=== PATIENT | male | born 1985 | race Hispanic/Latino ===

== ENCOUNTER 2021-02-15 11:14 | Emergency (ER) | payer SELFPAY ==
--- NOTE | 2021-02-15 11:27 | ED.GENADULT ---
HPI - General Adult General Chief complaint: Neck Pain/Injury Stated complaint: neck pain Time Seen by Provider: 02/15/21 11:40 Source: patient and RN notes reviewed Mode of arrival: ambulatory Limitations: language barrier (Maori-speaking, interpretation by nephew, manager analytical offered and refused.) History of Present Illness HPI narrative: 35-year-old male presents with left-sided neck pain, left-sided headache for approximately 2 to 3 days. He denies any neck injury, trauma. Denies any head injury. He denies nausea, vomiting. He denies weakness in any extremity or vision changes. He reports he had a history of high blood pressure, but has not been taking his blood pressure medications for approximately 5 months. He denies chest pain, syncope, near syncope. Reports he is tried Tylenol, ibuprofen, [id number] pain creams with no relief. Reports pain is slightly worsened with rotation of the neck. MD complaint: Neck pain Related Data Allergies Allergy/AdvReac Type Severity Reaction Status Date / Time No Known Allergies Allergy Verified 02/15/21 11:30 Review of Systems Review of Systems: Narrative: CONSTITUTIONAL: Denies malaise, chills, sweats, or fever. EYES: Denies visual changes ENT: Denies rhinorrhea, congestion, sinus pain, otalgia or sore throat. CARDIOVASCULAR: Denies chest pain, palpitations, or edema. RESPIRATORY: Denies cough or dyspnea. GASTROINTESTINAL: Denies abdominal pain, nausea, vomiting MUSCULOSKELETAL: Reports left-sided neck pain, pain at the base of the head on the left side NEUROLOGIC: Denies numbness, weakness. Reports left-sided headache. PSYCHIATRIC: Denies anxiety or depression. All systems reviewed & are unremarkable except as noted in HPI and below PMFSH Comments At time of signature, agree with nursing past medical, surgical, social and family history. There is no relevant family history pertinent to the presenting complaint Exam Narrative: Exam Narrative: GENERAL: Well-appearing, well-nourished, and in no acute distress. HEAD: Normocephalic, atraumatic. EYES: PERRLA, conjunctivae clear, and EOMI. No nystagmus. ENT: Nares clear. Mucous membranes moist. TM pearly marquez with sharp light reflex bilaterally; no tragal tenderness. NECK: Supple. No lymphadenopathy. No jugular venous distension, thyromegaly, or carotid bruits. Carotids were easily palpable bilaterally. CHEST: No respiratory distress. Clear to auscultation. No bony deformities, no asymmetry. Speaks in full sentences. HEART: Regular rate and rhythm. No murmur heard. Normal peripheral pulses. SKIN: Warm, dry, no rash. NEURO: Alert and oriented x3. No focal deficits. PSYCH: Normal mood and affect Course Course Emergency Course: Patient is aware of, understands and agrees to reasons to be seen in the emergency department. Patient agrees to proceed directly to the emergency department. Portions of this record may have been created with voice recognition software Vital Signs Vital signs: Reviewed. Transfer Transfered to: [facility] Transportation: Other (Private vehicle) Transfer rationale: High blood pressure, headache, neck pain Accepting physician: Dr. Jordan Medical Decision Making MDM Narrative Medical decision making narrative: Patient's history and exam warrant for evaluation emergency department. Patient is stable for transfer via private vehicle. Critical Care Time Critical Care Time Critical Care Time: No Discharge Plan Discharge Clinical Impression: High blood pressure Qualifiers: Hypertension type: unspecified Qualified Code(s): I10 - Essential (primary) hypertension Headache Qualifiers: Headache type: unspecified Headache chronicity pattern: episodic headache Intractability: intractable Qualified Code(s): R51.9 - Headache, unspecified Patient Disposition: Home, Self-Care Condition: Stable Follow-up/Referrals: UNKNOWN,DOCTOR [Primary Care Provider] - Time of Disposition: 11:58
[2021-02-15 11:36] VITALS: BP 222/135; PULSE 85; RESP 16; TEMP 36.6; O2SAT 98
[2021-02-15 11:41] VITALS: BP 238/124
== END 2021-02-15 11:54 | disposition home or self-care (01) ==
PROVIDERS: Emergency Provider Nurse Practitioner
DX: I10 Essential (primary) hypertension (principal); R51.9 Headache, unspecified
CPT/HCPCS: 99202; G0463

== ENCOUNTER 2021-02-15 12:08 | Inpatient (IN) | payer SELFPAY ==
[2021-02-15] VITALS (12 sets, daily range): BP systolic 167–254; BP diastolic 114–153; PULSE 70–89; RESP 12–18; TEMP 35.7–36.7; O2SAT 98–100
--- NOTE | ~2021-02-15 | US_ITS ---
EXAMINATION: US renal BI EXAM DATE: 02/16/2021 15:05 INDICATION: Acute kidney insufficiency. Hypertension. TECHNIQUE: Multiple grayscale and Doppler images of the kidneys were obtained (by a technologist who performed the scan) and subsequently reviewed. There is no prior study for comparison. FINDINGS: Right kidney: There is normal contour and increased echogenicity. It measures 8.6 x 3.8 x 4.5 centim eters. There are no focal renal lesions identified. There is no hydronephrosis. Left kidney: There is normal contour and increased echogenicity. It measures 9.2 x 5.2 x 5.5 centime ters. There are no focal renal lesions identified. There is no hydronephrosis. Bladder unremarkable. IMPRESSION: Hyperechoic, mildly atrophic kidneys bilaterally. Medical renal disease. No hydronephrosi s. Reviewed, dictated and finalized at location A. IMPRESSION: Hyperechoic, mildly atrophic kidneys bilaterally. Medical renal dis ease. No hydronephrosis.
--- NOTE | ~2021-02-15 | XR_ITS ---
EXAMINATION: XR chest 1V portable EXAM DATE: 02/15/2021 13:01 INDICATION: Hypertension. TECHNIQUE: Portable AP frontal chest x-ray was obtained. There is no prior study for comparison. FINDINGS: Mild hyperinflation. The lungs are clear. There are no pleural effusions. The cardiomedia stinal silhouette is within normal limits. There is no pneumothorax suspected. The bones and soft t issues are unremarkable. IMPRESSION: No acute cardiopulmonary findings. Mild hyperinflation. Reviewed, dictated and finalized at location A.
--- NOTE | ~2021-02-15 | CT_ITS ---
EXAMINATION: CT BRAIN W/O DATE: 02/15/2021 12:55 INDICATION: Hypertension. Headache. TECHNIQUE: Computed tomography (CT) of the head was performed without intravenous contrast. The dose- length product was 605.33 mGy-cm. The mA was adjusted according to patient size. Iterative reconstruction technique was employed. COMPARISON: No prior studies for comparison. FINDINGS: Normal brain parenchymal volume for age. Normal marquez-white differentiation. No acute intrac ranial hemorrhage, infarction, mass or mass effect. No ventriculomegaly or midline shift. Midline sagittal images demonstrate a normal corpus callosum, c raniovertebral junction and sella turcica. Basilar cisterns are patent. Paranasal sinuses and mastoids are pneumatized. No depressed skull fractures. IMPRESSION: 1. No acute intracranial abnormality. Reviewed, dictated and finalized at location B.
--- NOTE | ~2021-02-15 | US_ITS ---
EXAMINATION: US retroperitoneal duplex ltd EXAM DATE: 02/16/2021 15:05 INDICATION: Uncontrolled hypertension. TECHNIQUE: Multiple grayscale and Doppler images of the kidneys and renal arteries were obtained. T here is no prior study for comparison. FINDINGS: The aorta peak systolic velocity is 107 cm/s. Renal arteries interrogated in several segments from origin to hilum. RIGHT RENAL ARTERY Proximal segment: 73 cm/s. Mid segment: 86 cm/s. Distal segment: 80 cm/s. LEFT RENAL ARTERY Proximal segment: 55 cm/s. Mid segment: 51 cm/s. Distal segment: 50 cm/s. IMPRESSION: 1. Renal artery Doppler velocities within normal limits. Reviewed, dictated and finalized at location A.
--- NOTE | 2021-02-15 12:40 | ECG_ITS ---
Measurements Intervals [place] Rate: 75 P: 65 [place]: 173 QRS: 48 QRSD: 102 T: 112 QT: 342 QTc: 384 Interpretive Statements SINUS RHYTHM INCOMPLETE RIGHT BUNDLE BRANCH BLOCK BORDERLINE ST-T WAVE ABNORMALITY- ANTEROLAT/HIGH LAT LEADS BASELINE ARTIFACT- V5 BORDERLINE ECG Electronically Signed On 02-15-2021 14:00:23 CDT by Mustapha Rosado D.O.
--- NOTE | 2021-02-15 12:42 | ED.GENADULT ---
HPI - General Adult General Chief complaint: Recheck/Abnormal Lab/Rx Stated complaint: Headache Time Seen by Provider: 02/15/21 12:16 Source: patient and RN notes reviewed Mode of arrival: ambulatory Limitations: language barrier History of Present Illness HPI narrative: Patient is 35 years old male, does not speak Singaporean, came with his friend who speaks Singaporean complaining of left side headache and left side of the neck pain started 4 days ago. Patient been taking ibuprofen with minimal improvement. Patient denies having similar symptoms. Patient does not take any medications, healthy otherwise, does not smoke or drink or uses marijuana. Patient denies any recent trauma or injury. Patient denies any fever, chills, nausea, vomiting, chest pain, back pain, abdominal pain, blurred vision. Patient does not know his family history. Related Data Home Medications Medication Instructions Recorded Confirmed No Home Medications 02/15/21 Allergies Allergy/AdvReac Type Severity Reaction Status Date / Time No Known Allergies Allergy Verified 02/15/21 11:30 Review of Systems Review of Systems: Narrative: CONSTITUTIONAL: Denies fever, chills, or sweats. EYES: Denies visual changes, redness, or discharge. ENT: Denies rhinorrhea, congestion, sore throat, or otalgia. CARDIOVASCULAR: Denies chest pain, palpitations, or edema. RESPIRATORY: Denies cough or dyspnea. GASTROINTESTINAL: Denies abdominal pain, nausea, vomiting, or diarrhea. GENITOURINARY: Denies dysuria or hematuria. SKIN: Denies rash or itching. MUSCULOSKELETAL: Denies back pain, joint pain, or myalgia. NEUROLOGIC: Denies headache, numbness, or weakness. PSYCHIATRIC: Denies anxiety or depression. PMFSH Social History Social History Gender identity (if verbalized by the patient): Male Exam Narrative: Exam Narrative: General appearance: Well-developed, well-nourished Skin: Normal color Head: Normocephalic, nontraumatic Eyes: Clear conjunctiva ENT: Oropharynx normal, ears normal, nose normal Neck: Supple, nontender Chest and respiratory: Airway patent, no respiratory distress, no accessory muscle use Heart: Regular rate/rhythm Abdomen: Soft, nontender, no organomegaly, quiet bowel sounds Vascular: Normal peripheral pulses, normal capillary refill. Musculoskeletal: Normal range of motion, nontender back Neurologic: Alert and oriented ?3, PUBLIC POLICY MEDIATOR is normal as tested, no gross motor deficit Course Course Emergency Course: Stable Consultations Consultation #1: DR HENSON Date: 02/15/21 Time: 14:58 Vital Signs Vital signs: Vital Signs Temperature 36.7 C 02/15/21 12:22 Pulse Rate 89 02/15/21 12:22 Respiratory Rate 18 02/15/21 12:22 Blood Pressure 254/153 H 02/15/21 12:22 Pulse Oximetry 100 02/15/21 12:22 Temperature 36.7 C 02/15/21 12:22 Pulse Rate 70 02/15/21 14:27 Respiratory Rate 14 02/15/21 14:27 Blood Pressure 202/140 H 02/15/21 14:27 Pulse Oximetry 100 02/15/21 14:27 Medical Decision Making MDM Narrative Medical decision making narrative: New onset of hypertension. Labs, CT head, chest x-ray, EKG, UA ordered. Further plan to follow Differential Diagnosis Differential Diagnosis: New onset hypertension, intracranial hemorrhage Vital Signs Vital Signs: Vital Signs Temperature 36.7 C 02/15/21 12:22 Pulse Rate 89 02/15/21 12:22 Respiratory Rate 18 02/15/21 12:22 Blood Pressure 254/153 H 02/15/21 12:22 Pulse Oximetry 100 02/15/21 12:22 Temperature 36.7 C 02/15/21 12:22 Pulse Rate 70 02/15/21 14:27 Respiratory Rate 14 02/15/21 14:27 Blood Pressure
--- NOTE | 2021-02-15 12:51 | PC.NURSE ---
Pt to CT via wheelchair at this time.
[2021-02-15] MEDS: ONDANSETRON INJ 4 MG/2 ML VIAL IV PUSH (13:28)
[2021-02-15] MEDS: MORPHINE SULFATE (*CRX) 4 MG/ML INJ IV PUSH (13:28)
[2021-02-15] MEDS: LABETALOL HCL INJ 100 MG/20 ML VIAL 20 MG IV PUSH ×2 (13:28→14:01)
[2021-02-15 13:41] LABS: Basophils Percent Auto 0.6 % (0.2-1.2); Eosinophils Absolute Auto 0.1 K/mm3 (0-0.3); Hematocrit 46.1 % (42.0-52.0); Hemoglobin 15.8 g/dL (14.0-18.0); Immature Granulocyte Absolute 0.01 K/mm3 (0.00-0.031); Immature Granulocyte Percent A 0.2 % (0-0.5); Lymphocytes Absolute Auto 1.16 K/mm3 (0.9-3.2); Lymphocytes Percent Auto 17.7 % (18.3-44.2); Mean Corpuscular HGB Conc 34.3 g/dl (32-36); Mean Corpuscular Volume 93.5 fl (80-100); Mean Platelet Volume 10.6 fl (7.4-10.4); Monocytes Absolute Auto 0.3 K/mm3 (0.1-0.6); Neutrophils Absolute Auto 4.9 K/mm3 (1.3-6.7); Neutrophils Percent Auto 74.5 % (45.5-73.1); Platelet Count Result 278 k/mm3 (150-375); Red Blood Count 4.93 M/mm3 (4.6-6.20); Red Cell Distribution Width 11.9 % (11.5-14.5); White Blood Count 6.6 K/mm3 (4.5-10.0)
[2021-02-15 13:57] LABS: Add Urine Microscopic? YES; Appearance Urine Clear (Clear); Bacteria Urine Trace /hpf; Bilirubin Urine Negative (Negative); Blood Urine 2+ (Negative); Color Urine Yellow (Yellow); Glucose Urine UA Negative (Negative); Ketones Urine Negative (Negative); Leukocyte Esterase Ur Negative LEU/UL (Negative); Mucus Urine Rare /lpf; Nitrate Urine Negative (Negative); Protein Urine 3+ mg/dL (Negative); RBC Urine 21-50 /hpf (0-2); Specific Grav Ur 1.012 (1.001-1.035); Urobilinogen Urine Negative mg/dL (<2.0); WBC Urine 0-3 /hpf
[2021-02-15] MEDS: diphenhydrAMINE HCl INJ 50 MG/ML VIAL 25 MG IV PUSH (13:58)
[2021-02-15 14:03] LABS: Alanine Aminotransferase 29 U/L (4-50); Albumin Level 3.9 g/dL (3.5-5.1); Alkaline Phosphatase 64 U/L (38-126); Anion Gap 5 mmol/L (8-16); Aspartate Amino Transferase 38 U/L (17-59); Bilirubin,Total 0.3 mg/dL (0.2-1.3); Blood Urea Nitrogen 17 mg/dL (9-20); Calcium 8.5 mg/dL (8.4-10.2); Carbon Dioxide 31 mmol/L (22-30); Chloride 106 mmol/L (98-107); Estimated CRCL calculation 61 ml/min; Estimated Glomerular Filt Rate 53; Glucose 128 mg/dL (75-110); Potassium 3.8 mmol/L (3.4-5.0); Sodium 142 mmol/L (137-145)
[2021-02-15] MEDS: LOSARTAN POTASSIUM 50 MG TABLET PO (15:16)
--- NOTE | 2021-02-15 17:00 | PM.IMHP ---
H&P: HPI History of Present Illness Date/Time: 02/15/21 17:00 Chief Complaint: Headache, high blood pressure. Narrative: This is a 35-year-old male with untreated hypertension who presented to the emergency department earlier today via private vehicle from a local urgent care for evaluation of headache and high blood pressure. He is Urdu-speaking and an program technician was used to obtain the following history. Sometime last spring he injured his shoulder at which time he was discovered to have hypertension. He was started on nifedipine and initially he was diligent about checking his blood pressures at home and he and his family members have changed their eating habits and are especially mindful of their sodium intake. About 5 months ago he ran out of his nifedipine and did not follow-up with a primary care provider for a refill due to financial concerns. He has also fallen out of habit of checking his blood pressure. Over the last 4 days he has had a constant left-sided headache which seems to be worse with activity and heat. Despite taking Tylenol and ibuprofen it has continued and he presented to a local urgent care for evaluation of such. His blood pressures were extremely elevated, well above 200/100 and he was referred to the emergency department. Aside from the headache he has no complaints and specifically denies visual changes, dizziness, vertigo, focal weakness, paresthesias, chest pain, tachycardia, shortness of breath, and sweats. He denies significant caffeine and alcohol use. No drug use. Review of Systems Review of Systems: Narrative: Twelve systems were reviewed with pertinent positives and negatives as per HPI. No fever, chills, or sweats. He denies recent cold and flu symptoms. No cough. No known exposure to those positive for COVID-19. He denies nausea, vomiting, and diarrhea. Patient admits that he worries a lot and has been more anxious and stressed lately, which he thinks is affecting his blood pressure. Except as documented, all other systems were reviewed and are negative. [facility] Past Medical History Medical History (Updated 02/15/21 @ 19:59 by Mariya Navarro PA-C) Hypertension Surgical History Surgical History (Updated 02/15/21 @ 19:55 by Mariya Navarro PA-C) No history of previous surgery Family History Family History (Updated 02/15/21 @ 19:56 by Mariya Navarro PA-C) Other Diabetes mellitus Social History Social History (Updated 02/15/21 @ 19:57 by Mariya Navarro PA-C) Social History: The patient lives with his in 4 children in [place]. He is originally from [place]. 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 Lifelong nonsmoker. No alcohol or illicit substance use. He designates his , Raciel Banuelos, as his surrogate decision maker and wishes to be a full code. Meds Home Medications and Allergies Home Medications Medication Instructions Recorded Confirmed Type No Home Medications 02/15/21 History Allergies Allergy/AdvReac Type Severity Reaction Status Date / Time No Known Allergies Allergy Verified 02/15/21 11:30 Vital Signs Vital Signs - 24 hr 02/15/21 12:22 02/15/21 13:45 02/15/21 14:27 Temperature 98.0 F Pulse Rate 89 76 70 Respiratory Rate 18 18 14 Blood Pressure 254/153 H 218/148 H 202/140 H Pulse Oximetry 100 100 100 02/15/21 15:07 Temperature Pulse Rate 72 Respiratory Rate 13 Blood Pressure 217/145 H Pulse Oximetry 100 Exam Narrative: Exam Narrative: General: Well-developed male in the semi-Sauceda position in bed. Weight: 84 kilograms. BMI: 30.8. HEENT: Normocephalic, atraumatic. PERRL, EOMI. Sclerae anicteric. Oral mucosa moist. Oropharynx clear. Neck: Supple. No carotid bruits. Respiratory: Lungs are clear to auscultation bilaterally. Cardiovascular: Regular rate and rhythm with S1-S2. Gastrointestinal: Abdomen is soft, nontender, and nondistended with posit
--- NOTE | 2021-02-15 18:07 | ADMGEN ---
This patient, Danie Greer, was admitted to IMU Room 213-01 at 1757. Patient/family oriented to hospital policies and general routines including ID bracelet, bed and alarms, visiting hours, pain management, procedures, bathroom and other care routines, personal items, smoking policy, room service/diet, and visiting hours. Information on how to activate the Rapid Response Team has been discussed. Patient/Family are encouraged to report perceived risks to care and to ask questions if they do not understand what they are told or what they should do.
[2021-02-15] MEDS: amLODIPine BESYLATE 5 MG TABLET 10 MG PO (22:14)
--- NOTE | 2021-02-15 23:18 | ECG_ITS ---
Measurements Intervals [place] Rate: 69 P: 62 ID: 178 QRS: 40 QRSD: 105 T: 128 QT: 365 QTc: 393 Interpretive Statements SINUS RHYTHM INCOMPLETE RIGHT BUNDLE BRANCH BLOCK ST-T WAVE ABNORMALITY IN ANTEROLAT/HIGH LAT LEADS- CONSIDER ISCHEMIA ABNORMAL ECG Electronically Signed On 02-16-2021 13:02:48 CDT by Mustapha Rosado D.O.
[2021-02-16] VITALS (14 sets, daily range): BP systolic 158–180; BP diastolic 103–129; PULSE 66–95; RESP 12–18; TEMP 36.1–37.1; O2SAT 100
--- NOTE | 2021-02-16 | ECHO_ITS ---
Patient Info Name: Danie Greer Age: 35 years : 1985 Gender: Male Ht: 65 in Wt: 185 lbs BSA: 1.99 m2 HR: 75 bpm BP: 168 / 118 mmHg Technical Quality: Good Exam Date: 02/16/2021 9:08 AM Exam Location: [facility] Patient Status: Inpatient Admit Date: 02/15/2021 Staff Ordering Physician: Mariya Navarro PA-C Underwater Photographer: Filiberto Mir RDCS, RT Attending Provider: Roberto Sam MD Referring Physician: Melanie CONN; Exam Type: CA echo doppler color flow Study Info Complete two-dimensional, color flow and Doppler transthoracic echocardiogram is performed. Strain analysis performed. Summary 1. Complete two-dimensional, color flow and Doppler transthoracic echocardiogram is performed. 2. Left ventricular chamber dimension is normal. 3. Left ventricular systolic function is normal, estimated at 65-70%. 4. There is mildly increased left ventricular wall thickness. 5. The left ventricular diastolic function is grade I diastolic dysfunction. 6. E/e' 14 is mildly elevated. 7. Global longitudinal strain is abnormal at -15.4%. Left Ventricle E/e' 14 is mildly elevated. Global longitudinal strain is abnormal at -15.4%. Left ventricular chamber dimension is normal. Left ventricular systolic function is normal, estimated at 65-70%. There is mildly increased left ventricular wall thickness. The left ventricular diastolic function is grade I diastolic dysfunction. Right Ventricle Right ventricular chamber dimension is normal. Right ventricular systolic function is normal. Left Atria Left atrial chamber dimension is normal. Right Atria Right atrial chamber dimension is normal. Aortic Valve The aortic valve is trileaflet. There is no aortic valve stenosis. There is no aortic valve regurgitation. Pulmonic Valve There is no pulmonic regurgitation. Mitral Valve There is no mitral valve stenosis. There is no mitral valve regurgitation. Tricuspid Valve There is no tricuspid valve regurgitation. Pericardium/Pleural There is no pericardial effusion. Inferior Vena Cava Normal inferior vena cava with >50% collapse upon inspiration consistent with normal right atrial pressure, 5 mmHg. Aorta The aortic root size at the sinus of Valsalva is normal. Left Ventricular Outflow Tract Name Value Normal LVOT 2D LVOT Diameter 2.0 cm LVOT Doppler LVOT Peak Gradient 5 mmHg LVOT Mean Gradient 3 mmHg LVOT VTI 21 cm LVOT VTI/AV VTI Ratio 0.8 LVOT Stroke Volume 64 ml LVOT CO 5.2 l/min LVOT CI 2.6 l/min/m2 Mitral Valve Name Value Normal MV Doppler MV Decel [place] 356 cm/s2 MV PHT
[2021-02-16 00:04] LABS: Troponin I < 0.012 ng/mL (0.000-0.034)
[2021-02-16 03:00] LABS: Troponin I < 0.012 ng/mL (0.000-0.034)
[2021-02-16 06:22] LABS: Hematocrit 45.4 % (42.0-52.0); Hemoglobin 15.6 g/dL (14.0-18.0); Mean Corpuscular HGB Conc 34.4 g/dl (32-36); Mean Corpuscular Hemoglobin 32.5 pg (26-34); Mean Corpuscular Volume 94.6 fl (80-100); Mean Platelet Volume 10.5 fl (7.4-10.4); Platelet Count Result 263 k/mm3 (150-375); White Blood Count 6.5 K/mm3 (4.5-10.0)
[2021-02-16 06:31] LABS: Anion Gap 3 mmol/L (8-16); Blood Urea Nitrogen 16 mg/dL (9-20); Calcium 8.4 mg/dL (8.4-10.2); Carbon Dioxide 28 mmol/L (22-30); Chloride 109 mmol/L (98-107); Cholesterol 181 mg/dL (0-200); Estimated CRCL calculation 54 ml/min; Estimated Glomerular Filt Rate 46; Glucose 103 mg/dL (75-110); HDL Direct 53 mg/dL; Magnesium 2.1 mg/dL (1.6-2.3); Potassium 3.8 mmol/L (3.4-5.0); Sodium 140 mmol/L (137-145); Triglycerides 112 mg/dL (<150)
[2021-02-16 06:42] LABS: LDL Cholesterol Direct 94 mg/dL; Troponin I < 0.012 ng/mL (0.000-0.034)
[2021-02-16] MEDS: lisinopriL 10 MG TABLET PO (08:31)
--- NOTE | 2021-02-16 14:38 | PM.CNNEP ---
Assessment and Plan Assessment and plan (1) Hypertensive urgency: Code(s): I16.0 - Hypertensive urgency Status: Acute Assessment and Plan: as noted by BP readings on admission plan to SLOWLY adjust medications as do not want to control to fast his BP for fear of possible renal hypoperfusion aim to keep in the 150 - 160 systolic range today given financial issues, will try to use generic medications (lisinopril and amlodipine seem reasonable for now) follow trend of hemodynamics (2) Renal failure: Code(s): N19 - Unspecified kidney failure Status: Acute Assessment and Plan: presumably normal function at baseline follow-up on renal ultrasound and renal duplex (to r/o renal artery stenosis) however, the presence of blood and urine on urinalysis is concerning - will check serologies for completeness he may have had some damage to kidneys already..... Long and extensive discussion (> 20 minutes) with family member by phone (who was able to translate for me my discussion with the patient) regarding the issues about his hypertension as well as possible kidney dysfunction. Will continue to follow History of Present Illness Reason for Consult Consult date: 02/16/21 Reason for consult: accelerated hypertension and Other (elevated creatinine) Chief Complaint Chief complaint: hypertension,judit,headache History of Present Illness Narrative: The majority of the information I have obtained is from review of the electronic medical record as well as discussion with the patient's family member by phone who was able to translate for me when I asked questions as the patient only speaks Greenlandic. The patient is a 35-year-old male who presented to [facility] Emergency room from a local urgent care center for further evaluation of persistent headache in association with high blood pressure. Sometime last spring the patient injured his shoulder at which time it was discovered that he had hypertension. He apparently was started on nifedipine along with dietary and lifestyle modifications which apparently kept his blood pressure reasonably controlled. About 4-5 months ago, he ran out of his medications and was unable to follow up with his primary care physician due to financial issues/concerns. Furthermore, he got out of the habit of watching his diet and did not check his blood pressures at home as he had been previously. About 3-4 days ago, he started having persistent left-sided headaches that would not go away with conservative therapy. He attempted to use Tylenol and ibuprofen without any significant improvement. Eventually, because the headaches or so persistent and debilitating, he presented to a local urgent care center for evaluation. They noted his blood pressure be quite elevated in the 200 systolic range and he was subsequently referred to the emergency room for further evaluation. Workup and evaluation in the emergency room did demonstrate his blood pressure be quite elevated in the 200-220 systolic range in association with the a for mentioned headaches. He received a couple doses of IV labetalol which did bring his blood pressure down into the 180 systolic range. Routine blood test demonstrated and a normal CBC but his chemistry showed elevated BUN and creatinine in association with protein and blood in his urine. It was felt that his significantly elevated blood pressure may have adversely affected his kidney function and for these reasons as well as further optimization of his blood pressure control, he was admitted the hospital for further therapy. Renal consultation was requested due to his abnormal renal function and accelerated hypertension. Aside from the a for mentioned headache, he gave no other symptoms with regard to visual changes, dizziness, vertigo, weakness, chest pain, shortness of breath, night sweats, or syncope. He denies any other significant alcohol, caffeine mark
[2021-02-16] MEDS: ACETAMINOPHEN 500 MG TABLET 1000 MG PO (15:13)
--- NOTE | 2021-02-16 16:08 | PM.IMPN ---
Progress Note: A&P Assessment and Plan (1) Hypertensive urgency: Code(s): I16.0 - Hypertensive urgency Status: Acute Assessment and Plan: patient has been started on lisinopril continue to monitor caution while normalizing the blood (2) EZEQUIEL (acute kidney injury): Code(s): N17.9 - Acute kidney failure, unspecified Status: Acute Assessment and Plan: likely secondary to hypertensive nephropathy continue to monitor renal ultrasound reviewed renal artery ultrasound to reviewed (3) Proteinuria: Code(s): R80.9 - Proteinuria, unspecified Status: Acute Assessment and Plan: likely secondary to cardiovascular disease namely hypertension continue to monitor started lisinopril Subjective Date/time seen: 02/16/21 16:08 I feel fine Review of Systems Review of Systems: Narrative: patient denies any issues at this time Constitutional: Comments: no fevers no rigors no chills Eyes: Comments: no vision changes Cardiovascular: Comments: no chest pain no PND no orthopnea no dizziness Respiratory: Comments: no cough no sputum production Gastrointestinal: Comments: no nausea no vomiting no diarrhea no constipation no abdominal pain Musculoskeletal: Comments: no joint pain or muscle pain Integumentary/Breasts: Comments: no rashes Neurologic: Comments: no sensorimotor deficit, no vertigo Endocrine: Comments: no polydipsia polyphagia or polyuria Hematologic/Lymphatic: Comments: no lymphadenopathy Exam Narrative: Exam Narrative: patient is sitting in bed Const: General: comfortable, no acute distress, well developed, alert, awake and other ( well-appearing) Nutritional Appearance: average body habitus Orientation/consciousness: patient oriented x3 HENMT: Head: normal to inspection, normocephalic and atraumatic Ears: hearing grossly normal bilaterally Face and sinus: normal facial exam Eyes: General: appearance normal, both eyes and all related structures Pupils: Equal, round and reactive pupils present EOM: EOMs intact bilaterally Neck: Neck: full ROM, no lymphadenopathy and no JVD Thyroid: thyroid normal Lymphatic: no lymphadenopathy noted Resp: Effort & Inspection: normal respiratory effort and able to speak in complete sentences Auscultation: clear to auscultation bilaterally Cardio: Jugular venous distension: no JVD Rate: regular rate Rhythm: regular rhythm Heart sounds: S1 normal heart sound present and S2 normal heart sound present GI: GI Palp: Yes Soft to palpation and Yes No hepatosplenomegaly present : General: Yes deferred Skin: Rashes: no rashes Wounds: no wounds Neuro: General: patient oriented x3 and CN's II-XI intact bilaterally Cranial nerves: Yes CN's II-XII intact bilaterally and Yes Equal, round and reactive pupils present Cognition (Neuro): normal cognition Speech: normal speech Gait exam (Neuro): Normal gait present Motor exam (neuro): 5/5 motor strength present throughout Extrem: General: normal to inspection, full ROM, no joint enlargement and no pedal edema Objective Data Vital Signs Vital Signs: Vital Signs - 24 hr 02/15/21 17:15 02/15/21 17:48 02/15/21 18:00 Temperature 98 F Pulse Rate 76 71 72 Respiratory Rate 12 14 14 Blood Pressure 187/131 H 167/122 H 206/130 H Pulse Oximetry 99 98 100 02/15/21 18:12 02/15/21 20:00 02/15/21 22:00 Temperature 97.9 F Pulse Rate 88 72 79 Respiratory Rate 12 Blood Pressure 188/114 H Pulse Oximetry 100 02/15/21 23:38 02/16/21 00:00 02/16/21 02:00 Temperature 96.2 F L Pulse Rate 78 71 91 Respiratory Rate 16 Blood Pressure 173/115 H Pulse Oximetry 100 02/16/21 04:00 02/16/21 06:00 02/16/21 08:00 Temperature 96.9 F L 98.8 F Pulse Rate 71 76 74 Respiratory Rate 16 12 Blood Pressure 168/118 H 159/103 H Pulse Oximetry 100 100 02/16/21 10:00 02/16/21 12:00 02/16/21 14:00 Temperature 98.7 F Pulse Rate 75 72
[2021-02-16] MEDS: amLODIPine BESYLATE 5 MG TABLET 10 MG PO (20:15)
[2021-02-17] VITALS (17 sets, daily range): BP systolic 148–179; BP diastolic 96–120; PULSE 64–88; RESP 16–18; TEMP 36–36.6; O2SAT 99–100; BMI 30.7
[2021-02-17] MEDS: lisinopriL 10 MG TABLET PO ×2 (08:31→17:34)
[2021-02-17] MEDS: ACETAMINOPHEN 325 MG TABLET 650 MG PO ×2 (08:33→20:25)
[2021-02-17] MEDS: lisinopriL 20 MG TABLET 40 MG PO (10:19)
--- NOTE | 2021-02-17 10:47 | PM.PNNEP ---
Progress Note: A&P Assessment and Plan (1) Hypertensive urgency: Code(s): I16.0 - Hypertensive urgency Status: Acute Assessment and Plan: as noted by BP readings on admission trying to avoid overcontrol of BP to reduce risk of renal hypoperfusion aim to keep in the 150 - 170 systolic range for now renal duplex negative for renal artery stenosis can titrate lisiniopril dosage but follow-up on pending labs this AM (creatinine already mildly elevated) PRN hydralazine for now as well follow trend of hemodynamics (2) Renal failure: Code(s): N19 - Unspecified kidney failure Status: Acute Assessment and Plan: presumably normal function at baseline(?) HOWEVER, renal ultrasound is indicative of some changes of renal insufficiency follow-up on pending serologies and quantitate proteinuria suspect he may have an element of CKD at this time.... I suppose if his BP remains stable in the 150 - 160 systolic range by tomorrow and his renal function remains stable, he can probably be discharged but he will need close outpatient follow-up for his BP control and pending testing regarding his evident CKD. Will continue to follow. Subjective Date/time seen: 02/17/21 10:17 No acute complaints voiced at the time of my visit; anxious to go home; no headaches to report overnight or earlier this AM. Exam Narrative: Exam Narrative: General: WD/WN male in NAD Heart: normal S1 and S2; no rub Lungs: clear to auscultation Abdomen: soft, nontender, nondistended, positive bowel sounds Extremities: no cyanosis or clubbing; no edema Skin: warm and dry Objective Data Vital Signs Vital Signs: Vital Signs Temp Pulse Resp BP Pulse Ox 02/17/21 10:00 88 02/17/21 09:53 173/116 H 02/17/21 08:00 36.6 C 74 18 158/120 H 100 02/17/21 05:25 69 02/17/21 04:00 36.4 C L 74 16 148/99 H 100 02/17/21 02:00 70 02/17/21 00:00 86 18 100 02/16/21 23:45 36.1 C L 71 18 169/113 H 100 02/16/21 22:00 68 02/16/21 20:00 36.3 C L 66 16 180/129 H 100 02/16/21 18:00 84 02/16/21 16:00 36.4 C 77 12 159/122 H 100 02/16/21 14:03 100 02/16/21 14:00 82 02/16/21 12:00 37.1 C 72 12 158/128 H 100 Intake/Output Intake/Output: Intake & Output 02/14/21 02/15/21 02/16/21 02/17/21 23:59 23:59 23:59 23:59 Intake Total 1380 640 Output Total 650 Balance 730 640 Meds/Results Medications: Active Medications Generic Name Dose Route Start Last Admin Trade Name Freq PRN Reason Stop Dose Admin Acetaminophen 650 mg 02/16/21 22:39 02/17/21 08:33 Acetaminophen 325 Mg Tablet PO 650 mg Q6H PRN Administration Mild Pain (1-3) or Fever Amlodipine Besylate 10 mg 02/15/21 20:10 02/16/21 20:15 Amlodipine Besylate 5 Mg Tablet PO 10 mg Q24H ZAKIA Administration Hydralazine HCl 5 mg 02/15/21 20:08 Hydralazine Hcl 20 Mg/Ml Vial IV PUSH Q6H PRN SBP > 210 Lisinopril 10 mg 02/16/21 09:00 02/17/21 08:31 Lisinopril 10 Mg Tablet PO 10 mg DAILY ZAKIA Administration Radiology Results: ITS Impressions Head CT 02/15/21 12:56 IMPRESSION: 1. No acute intracranial abnormality. Chest X-Ray 02/15/21 13:02 IMPRESSION: No acute cardiopulmonary findings. Mild hyperinflation. Arterial/Peripheral Duplex 02/16/21 15:07 IMPRESSION: 1. Renal artery Doppler velocities within normal limits. Renal Ultrasound 02/16/21 15:15 IMPRESSION: Hyperechoic, mildly atrophic kidneys bilaterally. Medical renal disease. No hydronephrosis.
--- NOTE | 2021-02-17 12:25 | PM.IMPN ---
Progress Note: A&P Assessment and Plan (1) Hypertensive urgency: Code(s): I16.0 - Hypertensive urgency Status: Acute Assessment and Plan: patient was started on lisinopril and amlodipine is still high cautious normalization of blood pressure (2) High blood pressure: Qualifiers: Hypertension type: unspecified Qualified Code(s): I10 - Essential (primary) hypertension Code(s): I10 - Essential (primary) hypertension Status: Acute Assessment and Plan: patient has not been taking his home meds for several months also dietary noncompliance (3) Renal failure: Code(s): N19 - Unspecified kidney failure Status: Acute Assessment and Plan: renal ultrasound reviewed renal artery duplex reviewed likely secondary to hypertensive nephropathy (4) Proteinuria: Code(s): R80.9 - Proteinuria, unspecified Status: Acute Assessment and Plan: likely secondary to longstanding uncontrolled high blood pressure and hypertensive nephropathy (5) Headache: Qualifiers: Headache chronicity pattern: unspecified pattern Headache type: unspecified Intractability: not intractable Qualified Code(s): R51.9 - Headache, unspecified Code(s): R51.9 - Headache, unspecified Status: Acute Assessment and Plan: supportive care Tylenol p.r.n. Subjective Date/time seen: 02/17/21 12:25 I feel fine. Review of Systems Review of Systems: Narrative: patient states that he feels fine I would like to go home Constitutional: Comments: no fevers no rigors or chills Eyes: Comments: no vision changes Cardiovascular: Comments: no chest pain no PND no orthopnea no leg swelling Respiratory: Comments: no shortness of breath no cough no sputum production Gastrointestinal: Comments: no nausea no vomiting no diarrhea no constipation no abdominal pain Musculoskeletal: Comments: no joint pain or muscle pain Integumentary/Breasts: Comments: no rashes Neurologic: Comments: no sensorimotor deficit Exam Narrative: Exam Narrative: patient is laying in bed Const: General: comfortable, no acute distress, well developed, alert and awake Nutritional Appearance: average body habitus Orientation/consciousness: patient oriented x3 HENMT: Head: normal to inspection, normocephalic and atraumatic Ears: hearing grossly normal bilaterally Face and sinus: normal facial exam Eyes: General: appearance normal, both eyes and all related structures Pupils: Equal, round and reactive pupils present EOM: EOMs intact bilaterally Neck: Neck: full ROM, no lymphadenopathy and no JVD Thyroid: thyroid normal Lymphatic: no lymphadenopathy noted Resp: Effort & Inspection: normal respiratory effort and able to speak in complete sentences Auscultation: clear to auscultation bilaterally Cardio: Jugular venous distension: no JVD Rate: regular rate Rhythm: regular rhythm Heart sounds: S1 normal heart sound present and S2 normal heart sound present GI: GI Palp: Yes Soft to palpation and Yes No hepatosplenomegaly present : General: Yes deferred Skin: Rashes: no rashes Wounds: no wounds Neuro: General: patient oriented x3 and CN's II-XI intact bilaterally Cranial nerves: Yes CN's II-XII intact bilaterally and Yes Equal, round and reactive pupils present Cognition (Neuro): normal cognition Speech: normal speech Gait exam (Neuro): Normal gait present Motor exam (neuro): 5/5 motor strength present throughout Extrem: General: normal to inspection, full ROM, no joint enlargement and no pedal edema Objective Data Vital Signs Vital Signs: Vital Signs - 24 hr 02/16/21 14:00 02/16/21 14:03 02/16/21 16:00 Temperature 97.6 F Pulse Rate 82 77 Respiratory Rate 12 Blood Pressure 159/122 H Pulse Oximetry 100 100 02/16/21 18:00 02/16/21 20:00 02/16/21 22:00 Temperature 97.3 F L Pulse Rate 84 66 68 Respiratory Rate 16 Blo
[2021-02-17 12:29] LABS: Albumin Level 3.7 g/dL (3.5-5.1); Anion Gap 4 mmol/L (8-16); Blood Urea Nitrogen 16 mg/dL (9-20); Calcium 8.5 mg/dL (8.4-10.2); Carbon Dioxide 28 mmol/L (22-30); Chloride 106 mmol/L (98-107); Estimated CRCL calculation 57 ml/min; Estimated Glomerular Filt Rate 49; Glucose 105 mg/dL (75-110); Phosphorus 2.5 mg/dL (2.5-4.5); Potassium 4.3 mmol/L (3.4-5.0); Sodium 138 mmol/L (137-145)
[2021-02-17] MEDS: amLODIPine BESYLATE 5 MG TABLET 10 MG PO (14:15)
[2021-02-17 17:00] LABS: Total Protein Urine Random 79 mg/dL; Ur Ttl Prot Creatinine Ratio 4.39 mg/mg (0-0.20)
[2021-02-17 17:01] LABS: Sodium Urine Random 11 meq/L
[2021-02-17 17:19] LABS: Eosinophil Urine None Seen % (None Seen)
[2021-02-18] VITALS (8 sets, daily range): BP systolic 146–161; BP diastolic 98–109; PULSE 60–78; RESP 16–100; TEMP 35.9–36.3; O2SAT 20–100
[2021-02-18 05:07] LABS: Albumin Level 3.6 g/dL (3.5-5.1); Anion Gap 3 mmol/L (8-16); Blood Urea Nitrogen 20 mg/dL (9-20); Calcium 8.8 mg/dL (8.4-10.2); Carbon Dioxide 28 mmol/L (22-30); Chloride 107 mmol/L (98-107); Estimated CRCL calculation 54 ml/min; Estimated Glomerular Filt Rate 46; Glucose 96 mg/dL (75-110); Phosphorus 3.4 mg/dL (2.5-4.5); Potassium 4.1 mmol/L (3.4-5.0); Sodium 138 mmol/L (137-145)
[2021-02-18 05:11] LABS: Complement C3 104 mg/dL (88-165)
[2021-02-18] MEDS: lisinopriL 10 MG TABLET PO (08:25)
[2021-02-18] MEDS: amLODIPine BESYLATE 5 MG TABLET 10 MG PO (08:25)
--- NOTE | 2021-02-18 11:25 | PM.DS ---
DS: Admitting Diagnosis Admitting Diagnosis Admitting Diagnosis: (1) Hypertensive urgency: (2) Headache: (3) Renal failure: (4) Proteinuria: DS: Discharge Diagnosis Discharge Diagnosis (1) Hypertensive urgency: Code(s): I16.0 - Hypertensive urgency Status: Acute Assessment and Plan: Resolved blood pressure is better controlled patient was started on amlodipine and lisinopril (2) High blood pressure: Qualifiers: Hypertension type: unspecified Qualified Code(s): I10 - Essential (primary) hypertension Code(s): I10 - Essential (primary) hypertension Status: Acute Assessment and Plan: patient noncompliance with medication secondary to not being able to afford them this time patient has been given medications that are affordable by [employer] drug list program (3) Proteinuria: Code(s): R80.9 - Proteinuria, unspecified Status: Acute Assessment and Plan: likely secondary to hypertensive nephropathy (4) Renal failure: Code(s): N19 - Unspecified kidney failure Status: Acute Assessment and Plan: likely secondary to longstanding hypertension seen by nephrology will follow-up in the outpatient setting with primary care physician (5) Headache: Qualifiers: Headache chronicity pattern: unspecified pattern Headache type: unspecified Intractability: not intractable Qualified Code(s): R51.9 - Headache, unspecified Code(s): R51.9 - Headache, unspecified Status: Acute Assessment and Plan: instructed to avoid NSAID Tylenol as needed (6) EZEQUIEL (acute kidney injury): Code(s): N17.9 - Acute kidney failure, unspecified Status: Acute Assessment and Plan: BUN and creatinine has remained stable follow-up in the outpatient setting DS: Summary Hospital Course Reason for hospitalization: headache and neck pain Hospital Course: this is a 35-year-old male with past medical history significant for hypertension patient has not been taking his medications in a long time due to not being able to afford them. Patient presented to the emergency with neck pain and headache. he was found to have a blood pressure of 200+ systolic over 100 + diastolic. patient was admitted to IMU for for further evaluation and treatment. he was started on lisinopril and amlodipine. his blood pressure was close to normal at normalized cautiously. consults obtained: Nephrology procedures: No procedures Status at Discharge Cognitive/behavioral status at discharge: AAOX3 Functional status at discharge: independent ambulation Overall status at discharge: patient is back to baseline Time Spent with Patient Time attestation: Total time spent providing and/or coordinating discharge services: Time spent: Greater than 30 minutes Exam Narrative: Exam Narrative: sitting in bed in no acute distress Const: General: comfortable, no acute distress, well developed, alert and awake Nutritional Appearance: average body habitus Orientation/consciousness: patient oriented x3 HENMT: Head: normal to inspection, normocephalic and atraumatic Ears: hearing grossly normal bilaterally Face and sinus: normal facial exam Eyes: General: appearance normal, both eyes and all related structures Pupils: Equal, round and reactive pupils present EOM: EOMs intact bilaterally Neck: Neck: full ROM, no lymphadenopathy and no JVD Thyroid: thyroid normal Lymphatic: no lymphadenopathy noted Resp: Effort & Inspection: normal respiratory effort and able to speak in complete sentences Auscultation: clear to auscultation bilaterally Cardio: Jugular venous distension: no JVD Rate: regular rate Rhythm: regular rhythm Heart sounds: S1 normal heart sound present and S2 normal heart sound present GI: GI Palp: Yes Soft to palpation and Yes No hepatosplenomegaly present : General: Yes def
[2021-02-21 23:06] LABS: Albumin 3.4 g/dL (3.8-4.8); Alpha 1 Globulin 0.3 g/dL (0.2-0.3); Alpha 2 Globulin 0.6 g/dL (0.5-0.9); Beta 1 Globulin 0.4 g/dL (0.4-0.6); Gamma Globulin 1.1 g/dL (0.8-1.7); Protein, Total 6.1 g/dL (6.1-8.1)
[2021-02-23 08:38] LABS: Chloride Rand Ur <20 mmol/L (32-290); Creatinine Random Urine 19 mg/dL (20-320)
[2021-02-24 22:38] LABS: ANCA Screen Negative (Negative)
[2021-02-25 06:33] LABS: Creatinine, Random Urine 19 mg/dL (20-320); Total Protein/Creatinine Ratio 2474 mg/g creat (22-128)
[2021-02-25 13:45] LABS: Anti Glomerular Basement Memb <1.0 AI (<1.0)
== END 2021-02-18 11:45 | disposition home or self-care (01) | DRG 199 ==
LOC: ANHED 14:58 → ANHIMU 20:34
PROVIDERS: Internal Medicine Nephrology; Physician Assistant; Admitting Provider Internal Medicine; Emergency Provider Emergency Medicine; Visit Provider Internal Medicine
DX: I16.0 Hypertensive urgency (principal); I10 Essential (primary) hypertension; N17.9 Acute kidney failure, unspecified; R51.9 Headache, unspecified; R80.9 Proteinuria, unspecified; Z91.11 Patient's noncompliance with dietary regimen; Z91.14 Patient's other noncompliance with medication regimen
CPT/HCPCS: 36415; 70450; 71045; 76775; 80048; 80053; 80061; 80069; 81001; 81050; 82436; 82570; 83520; 83735; 84155; 84156; 84165; 84166; 84300; 84443; 84484; 85025; 85027; 85999; 86021; 86038; 86160; 86225; 93005; 93306; 93976; 96374; 96375; 96376; 99285; A9270; J1200; J2270; J2405